=== PATIENT | male | born 1975 | race Caucasian/White ===

== ENCOUNTER 2021-03-05 06:58 | Emergency (ER) | payer SELFPAY ==
[~2021-03-05 06:58] MED LIST: FISH OIL 1,0001 EACH PO; LIPITOR TAB 2020 MG PO; LOPRESSOR 25 MG25 MG PO; MULTIVITAMINS1 EAC1 PO
[2021-03-12 12:27] LABS: AMPHETAMINES, URINE Negative; BARBITURATE Negative; CANNABINOIDS Negative; COCAINE (METABOLITE) Negative; OPIATES Negative; PHENCYCLIDINE Negative
[2021-03-12 12:28] LABS: CREATININE 117.3 mg/dL; MEPERIDINE Negative; METHADONE Negative; PROPOXYPHENE Negative
[2021-03-12 14:39] LABS: BENZODIAZEPINES Negative
== END 2021-03-05 10:00 | disposition home or self-care (01) ==
LOC: ER1 06:58
PROVIDERS: Family Medicine
DX: M25.522 Pain in left elbow (principal); I10 Essential (primary) hypertension
CPT/HCPCS: 73080; 80307; 99283

== ENCOUNTER → 2021-03-10 | Outpatient (CLI) | payer OTHER | LOC: RAD 09:44 | DX: M79.602 Pain in left arm (principal); Z91.81 History of falling | CPT/HCPCS: 73080 ==

== ENCOUNTER 2021-08-04 14:32 | Emergency (ER) | payer OTHER ==
[2021-08-04 16:28] LABS: RED BLOOD COUNT 5.17 M/UL (4.20-5.50); WHITE BLOOD COUNT 13.3 K/UL (4.5-11.0)
[2021-08-04 16:52] LABS: BUN/CREATININE RATIO 14 (0-10)
[2021-08-04] MEDS ORDERED: COLCHICINE0.6 MG PO (18:31)
[2021-08-04] MEDS ORDERED: CEPHALEXIN500 M1 PO (18:31)
== END 2021-08-04 18:49 | disposition home or self-care (01) ==
LOC: ER1 14:32
PROVIDERS: Physician Assistant
DX: M79.671 Pain in right foot (principal); I10 Essential (primary) hypertension; F17.220 Nicotine dependence, chewing tobacco, uncomplicated
CPT/HCPCS: 73630; 80053; 84550; 85025; 99283